=== PATIENT | female | born 1955 | race Asian ===

== ENCOUNTER → 2018-03-06 | Outpatient (CLI) | payer OTHER ==
--- NOTE | 2018-03-06 09:27 | Diagnostic Imaging Report ---
EXAM: Complete Abdominal Ultrasound INDICATION: ^EPIGASTRIC PAIN COMPARISON: None. TECHNIQUE: Transverse and longitudinal images of the upper abdomen were obtained. FINDINGS: Liver: Size: 13.3 cm in the right midclavicular line, normal Appearance: Mildly increased echogenicity, smooth contour Mass: No focal masses Spleen: Size: 7.7 cm in length, normal Echogenicity: Normal Mass: No focal masses Gallbladder: Stones/Sludge: None Wall: 0.2 cm Appearance: No pericholecystic fluid or hydrops. Sonographic Loera's Sign: Negative Bile Ducts: Intrahepatic Ducts: No dilatation Extrahepatic Ducts: Common bile duct measures 0.2 cm, no dilatation Pancreas: Visualized pancreas is unremarkable. Right Kidney: Size: 9.2 cm Echogenicity: Normal Parenchymal thickness: Normal Collecting System: No hydronephrosis Stone: None Cyst/Mass: None Left Kidney: Size: 10.7 cm Echogenicity: Normal Parenchymal thickness: Normal Collecting System: No hydronephrosis Stone: None Cyst/Mass: None Vessels: Aorta: Visualized portions are normal Inferior Vena Cava: Visualized portions are normal Main Portal Vein: 0.8 cm, normal size with hepatopetal flow. Free Fluid: No ascites or pleural effusion IMPRESSION: Mildly increased hepatic echogenicity, suggestive of mild steatosis. Otherwise, unremarkable abdominal ultrasound. Signed by: Dr. Shakir Mcwilliams MD on 03/06/2018 9:24 AM
== END ==
LOC: US 07:25
PROVIDERS: ATTEND Internal Medicine Gastroenterology
DX: R10.13 Epigastric pain (principal)
CPT/HCPCS: 76700